=== PATIENT | female | born 1965 | race Two or more races ===

== ENCOUNTER 2016-11-22 17:36 | Emergency (ER) | payer SELFPAY ==
[~2016-11-22] VITALS: Ht 162.6 cm; Wt 86.6 kg
[2016-11-22 17:44] VITALS: BP 149/80
== END 2016-11-22 18:18 | disposition left against medical advice (07) ==
LOC: ER 17:40
DX: R04.0 Epistaxis (principal); Z53.21 Procedure and treatment not carried out due to patient leaving prior to being seen by health care provider